=== PATIENT | male | born 1990 | race African-American/Black ===

== ENCOUNTER 2019-06-15 19:50 | Emergency (ER) | payer BC ==
[~2019-06-15] VITALS: Ht 177.8 cm; Wt 93.0 kg
[~2019-06-15 19:50] MED LIST: CIPROFLOXIN HC2.5 M1 OPHTHALMIC
[2019-06-15 19:55] VITALS: BP 152/73
[2019-06-15] MEDS ORDERED: CIPROFLOXIN HC2.5 M1 OPHTHALMIC (20:08)
== END 2019-06-15 20:16 | disposition home or self-care (01) ==
LOC: M.ERS 19:50
DX: H10.9 Unspecified conjunctivitis (principal)